=== PATIENT | male | born 1945 | race Caucasian/White ===

== ENCOUNTER → 2018-07-12 | Day surgery (SDC) | payer MEDICARE | LOC: MSO 07-05 11:11 | DX: Z12.11 Encounter for screening for malignant neoplasm of colon (principal); D12.3 Benign neoplasm of transverse colon; I10 Essential (primary) hypertension; Z98.52 Vasectomy status; Z79.82 Long term (current) use of aspirin; Z87.891 Personal history of nicotine dependence; Z86.010 Personal history of colon polyps; Z85.828 Personal history of other malignant neoplasm of skin | CPT/HCPCS: 00811; J2704; J7120 ==

== ENCOUNTER 2019-06-03 10:00 | Outpatient (RCR) | payer MEDICARE | END 2019-06-03 10:30 | disposition still patient (30) | LOC: PT 10:00 | DX: C44.41 Basal cell carcinoma of skin of scalp and neck (principal); M25.511 Pain in right shoulder ==

== ENCOUNTER 2019-09-14 09:30 | Outpatient (RCR) | payer MEDICARE | END 2019-11-16 | disposition still patient (30) | LOC: PT | DX: C44.41 Basal cell carcinoma of skin of scalp and neck (principal) ==

== ENCOUNTER → 2021-04-29 | Day surgery (SDC) | payer MEDICARE | END | disposition home or self-care (01) | LOC: MSO 04-15 07:03 | DX: K22.82 Esophagogastric junction polyp (principal); K21.00 Gastro-esophageal reflux disease with esophagitis, without bleeding; K22.2 Esophageal obstruction; K44.9 Diaphragmatic hernia without obstruction or gangrene; I10 Essential (primary) hypertension; M10.9 Gout, unspecified; Z79.899 Other long term (current) drug therapy | CPT/HCPCS: 00731; C1769; J2704; J7120 ==

== ENCOUNTER → 2023-04-29 | Day surgery (SDC) | payer MEDICARE | END | disposition home or self-care (01) | LOC: MSO 09:00 | DX: H26.491 Other secondary cataract, right eye (principal) ==